=== PATIENT | male | born 1965 | race Caucasian/White ===

== ENCOUNTER 2024-09-24 17:06 | Inpatient (IN) | payer OTHER ==
[~2024-09-24] VITALS: Ht 175.3 cm; Wt 99.2 kg
[2024-09-24 18:04] LABS: BASOPHILS ABSOLUTE AUTO 0.05 K/mm3 (0.00-0.23); BASOPHILS PERCENT AUTO 1 % (0-2); EOSINOPHILS ABSOLUTE AUTO 0.25 K/mm3 (0.00-0.68); EOSINOPHILS PERCENT AUTO 4 % (0-6); Hemoglobin 14.8 g/dL (13.5-17.5); IMMATURE GRAN ABSOLUTE AUTO 0.02 K/mm3 (0.00-0.10); IMMATURE GRAN PERCENT AUTO 0 % (0-1); LYMPHOCYTES ABSOLUTE AUTO 2.44 K/mm3 (0.84-5.20); LYMPHOCYTES PERCENT AUTO 42 % (21-46); MONOCYTES ABSOLUTE AUTO 0.37 K/mm3 (0.16-1.47); MONOCYTES PERCENT AUTO 6 % (4-13); Mean Corpuscular HGB 35.7 pg (26.0-34.0); Mean Corpuscular HGB Conc 36.1 g/dL (31.5-36.5); Mean Corpuscular Volume 99 fL (80-100); NEUTROPHILS ABSOLUTE AUTO 2.74 K/mm3 (1.96-9.15); NEUTROPHILS PERCENT AUTO 47 % (41-73); RDW Coefficient Variation 13.2 % (11.7-14.2); RDW Standard Deviation 47.8 fL (35.1-46.3); Red Blood Cell Count 4.15 M/mm3 (4.30-5.90); White Blood Cell Count 5.87 K/mm3 (4.00-11.30)
[2024-09-24 18:15] LABS: Albumin, Blood 3.3 g/dL (3.4-5.0); Bilirubin, Total 2.4 mg/dL (0.1-1.0); Bun/Creatinine Ratio 9.1 (12.0-20.0); Creatinine, Blood 0.66 mg/dL (0.60-1.20); Globulin, Blood 3.2 g/dL (2.2-4.0); Total Protein, Blood 6.5 g/dL (6.4-8.2)
[2024-09-24 18:23] LABS: Platelet Count 148 K/mm3 (150-400)
[2024-09-24 18:24] LABS: Mean Platelet Volume 9.2 fL (9.1-12.4)
[2024-09-24] MEDS ORDERED: HYDROmorphone HCl/Pf 1MG SYR IV ONE (19:00)
[2024-09-24] MEDS ORDERED: Ondansetron HCl 2 MG / ML 2ML Vial IV ONE (19:00)
[2024-09-24] MEDS ORDERED: Lactated Ringer's 1,000 ML IV ONE (19:00)
[2024-09-24 19:04] LABS: Source, Urine Clean Catch
[2024-09-24 19:10] LABS: Appearance, Urine Clear (Clear); Bilirubin, Urine Neg (Neg); Blood, Urine Neg (Neg); Color, Urine Amber (P-Yellow); Glucose Qualitative, Urine Neg (Neg); Ketones, Urine 1+ (Neg); Leukocyte Esterase, Urine 1+ (Neg); Nitrite, Urine Neg (Neg); Protein, Urine Neg (Neg); Urobilinogen, Urine 2+ (Normal)
[2024-09-24 19:28] LABS: Bacteria Few /hpf; Red Blood Cells, Urine 0-2 /hpf (0-2); Squamous Epithelial Cells Few /hpf (Few)
[2024-09-24] MEDS ORDERED: Prochlorperazine Edisylate 10 mg Vial IV PRN (20:25)
[2024-09-24] MEDS ORDERED: Ondansetron HCl 2 MG / ML 2ML Vial IV PRN (20:25)
[2024-09-24] MEDS ORDERED: FLU VACC TS2024-25(6MOS UP)/PF 45 MCG/0.5 ML SYRINGE IM SCH (20:25)
[2024-09-24] MEDS ORDERED: NS 1,000 ML IV SCH (21:00)
[2024-09-24] MEDS ORDERED: Nicotine 7 MG PATCH TOP SCH (21:00)
[2024-09-24] MEDS ORDERED: CefOXitin Sodium 2,000 MG in NS 50 ML IV SCH (21:00)
[2024-09-24] MEDS ORDERED: Albumin (Human) 25gm/100ml 100 ML IV ONE (21:25)
[2024-09-24] MEDS ORDERED: HYDROmorphone HCl/Pf 1MG SYR IV PRN ×2 (21:55→22:25)
[2024-09-24] MEDS ORDERED: Furosemide 10 MG / ML 2ML Vial IV SCH (22:00)
[2024-09-24 22:15] VITALS: BP 145/82
[2024-09-24 23:40] LABS: C-Reactive Protein, High Sens. 1.01 mg/dL (0.000-3.000)
[2024-09-25] VITALS (15 sets, daily range): BP systolic 99–127; BP diastolic 55–75
[2024-09-25] MEDS ORDERED: ALDACTONE100 MG PO (00:22)
[2024-09-25] MEDS ORDERED: FURO40 PO (00:23)
[2024-09-25] MEDS ORDERED: PANT40 PO (00:24)
[2024-09-25] MEDS ORDERED: OXYC5 PO (00:24)
[2024-09-25] MEDS ORDERED: ONDA8 PO (00:25)
[2024-09-25] MEDS ORDERED: POTA10T PO (00:25)
[2024-09-25 05:03] LABS: BASOPHILS ABSOLUTE AUTO 0.02 K/mm3 (0.00-0.23); BASOPHILS PERCENT AUTO 1 % (0-2); EOSINOPHILS PERCENT AUTO 0 % (0-6); Hematocrit 35.6 % (37.0-53.0); Hemoglobin 12.6 g/dL (13.5-17.5); IMMATURE GRAN ABSOLUTE AUTO 0.01 K/mm3 (0.00-0.10); IMMATURE GRAN PERCENT AUTO 0 % (0-1); LYMPHOCYTES PERCENT AUTO 24 % (21-46); MONOCYTES ABSOLUTE AUTO 0.18 K/mm3 (0.16-1.47); MONOCYTES PERCENT AUTO 4 % (4-13); Mean Corpuscular HGB 35.1 pg (26.0-34.0); Mean Corpuscular HGB Conc 35.4 g/dL (31.5-36.5); Mean Corpuscular Volume 99 fL (80-100); Mean Platelet Volume 8.6 fL (9.1-12.4); NEUTROPHILS ABSOLUTE AUTO 2.93 K/mm3 (1.96-9.15); NEUTROPHILS PERCENT AUTO 71 % (41-73); Platelet Count 105 K/mm3 (150-400); RDW Standard Deviation 47.8 fL (35.1-46.3); Red Blood Cell Count 3.59 M/mm3 (4.30-5.90); White Blood Cell Count 4.14 K/mm3 (4.00-11.30)
[2024-09-25 05:17] LABS: International Normalized Ratio 1.34
[2024-09-25 05:32] LABS: Albumin/Globulin Ratio 1.2 (0.8-1.8); Bilirubin, Total 2.6 mg/dL (0.1-1.0); Bun/Creatinine Ratio 10.2 (12.0-20.0); Calcium, Blood 8.3 mg/dL (8.5-10.1); Creatinine, Blood 0.59 mg/dL (0.60-1.20); Globulin, Blood 2.6 g/dL (2.2-4.0); Potassium, Blood 3.9 mmol/L (3.5-5.5); Total Protein, Blood 5.6 g/dL (6.4-8.2)
[2024-09-25] MEDS ORDERED: Pantoprazole Sodium 40 MG Injection IV SCH (06:00)
--- NOTE | 2024-09-25 06:06 | NUR ---
Shift Summary Pt admitted from ED for incarerated umbilical hernia. I put a consult request in with Dr. Dove's answering service for this AM. Pt arrived on this floor c/o 04/16 pain. I called the hospitalist who increased PRN dilauded order, see EMAR. After giving 1 mg IV dilauded pt quickly fell asleep but desatted down to 79. He was placed on 2L NC where he maintaned SPO2>90% while asleep. This AM he had emesis, approx. 400 mL of dark green output. Pt c/o of intense heartburn before the emesis, the hospitalist ordered IV Protonix daily at 0600. After emesis pt stated his nausea was relieved. I gave one more dose of 0.5 mg dilauded and pt fell asleep without O2 and desatted again down to 78%. I placed his NC back on and he is currently satting at 92%. He is AOx4, normally independent but is in too much pain to get out of bed.
--- NOTE | 2024-09-25 08:00 | NUR ---
PT PLEASANT COOP LYING IN BED. SOMEWHAT HARD TO WAKEN. 02 AT 2L PLACED LAST ANURAG R/T SOMULENCE FROM PAIN MEDS. MAINTAINING MED 90'S. A/O X3 H/R REG, NO MURMUR NOTED. NO TELE. NO EDEMA NOTED. BT X4 HYPOACTIVE. LAST BM COUPLE DAYS PER PT. VOIDS URINAL. MEDICATED FOR PAIN RECENTLY. NO NOTICABLE BULGE AT UMBILICAL SITE AT THIS MOMENT. BED IN LOW POSITOIN, CALLLITE IN REACH,CALLS APPROP
[2024-09-25] MEDS ORDERED: Lactated Ringer's 1,000 ML IV SCH (11:45)
[2024-09-25] MEDS ORDERED: propofoL 20 ML IV ONE (12:01)
--- NOTE | 2024-09-25 12:18 | NUR ---
REPORTED TO DR PACHECO, ANESTHESIOLOGIST, IN DAY SURGERY THAT PATIENT MOANING DUE TO C/O OF ABDOMINAL PAIN. PATIENT RATED PAIN 4/10. NO NEW ORDERS.
[2024-09-25] MEDS ORDERED: FentaNYL Citrate 50 MCG/ML 2 ML Injection ONE (12:26)
[2024-09-25] MEDS ORDERED: SuccINYLCHOLINE Chloride 100 MG/5 ML 5MLSYR ONE (12:27)
[2024-09-25] MEDS ORDERED: Rocuronium Bromide 10 MG/ML 5ML Injection IV ONE (12:27)
[2024-09-25] MEDS ORDERED: Bupivacaine 0.25% Epi 1:200000 30 ML Vial ONE (12:29)
[2024-09-25] MEDS ORDERED: HYDROmorphone HCl/Pf 1MG SYR ONE (12:32)
[2024-09-25] MEDS ORDERED: Ondansetron HCl 2 MG / ML 2ML Vial ONE (12:57)
[2024-09-25] MEDS ORDERED: Dexamethasone Sod Phos 10 MG/ML 1ML VIAL ONE (12:57)
[2024-09-25] MEDS ORDERED: Sugammadex Sodium 200 MG/2ML SDV (100 MG/ML) ONE (12:57)
--- NOTE | 2024-09-25 13:56 | NUR ---
11:55 OUT TO SURGERY. IV ABX GIVEN TO RN 13:50 CALLED REPORT TO RN FOR ROOM 226.
--- NOTE | 2024-09-25 14:08 | NUR ---
pt arrived to room 226 from pacu resting in bed, vss. call light in reach. sleeping. small incision inferior to umbilicus w/tiss adhesive. bed alarm on for safety.
[2024-09-25] MEDS ORDERED: OxyCODONE HCL 5 MG TAB PO PRN ×2 (15:25→21:40)
[2024-09-25] MEDS ORDERED: Mag Hydrox/AL Hydrox/Simeth 30 ML UDC PO PRN (18:30)
[2024-09-25] MEDS ORDERED: Calcium Carbonate 500 MG Tab Chew PO PRN (18:30)
--- NOTE | 2024-09-25 18:35 | NUR ---
SUMMARY PT HAS BEEN SLEEPING MOST OF DAY SINCE ARRIVING TO UNIT FROM PACU. AWOKE BRIEFLY AND REPORTED HEART BURN/ACID REFLUX. OBTAINED ORDERS FOR TUMS AND MAALOX. AWAITING ORDERS TO BE VERIFIED BY PHARMACY. CALL LIGHT IN REACH. BED ALARM ON FOR SAFETY.
[2024-09-26 00:08] VITALS: BP 107/56
[2024-09-26 03:38] VITALS: BP 104/50
--- NOTE | 2024-09-26 06:40 | NUR ---
SHIFT SUMMARY POD 1 HERNIA REPAIR. REPORTS 7-8/10 ABD PAIN ANY TIME HE IS AWAKE. EVEN IF PT IS SOUNDLY SLEEPING W/EYES CLOSED PRIOR TO ENTERING . MEDICATED W/5MG OXYCODONE & PT STATED NO RELIEF, INFORMED MK Ryan & HE INCREASED DOSE TO 5-10MG Q4P. PO SURGICAL SITE INTACT, CLEAN, NO DRAINAGE NOTED. ABD MOD DISTENDED. HYPOACTIVE BT. DENIES PASSING FLATUS. HAS VOIDED MULT TIMES. SPO2 DROPS TO 80% ON RA AFTER RECIEVING PAIN MEDS, PLACED PT ON 2L O2. CALL LIGHT IN REACH.
[2024-09-26 07:12] VITALS: BP 115/69
[2024-09-26] MEDS ORDERED: CIPR500 PO (13:05)
[2024-09-26] MEDS ORDERED: OXAYDO5 M1 PO (13:07)
--- NOTE | 2024-09-26 13:41 | NUR ---
dISCHARGE INSTRUCT d/C INSTRUCT REVIEWED WITH PT AND S/O. STATED UNDERSTANDING AT DISCHARGE. DC'D TO POV AMBULATORY WITH PRINTED INSTRUCT.
== END 2024-09-26 13:55 | disposition home or self-care (01) | DRG 354 ==
LOC: ER 17:06 → MEDS 20:20 → SURS 09-25 13:36 → UNDODEPER 09-26 05:28 → SURS 09-26 13:55
PROVIDERS: Registered Nurse; Student in an Organized Health Care Education/Training Program; Surgery; ADMIT Student in an Organized Health Care Education/Training Program
PROC: 0WUF0JZ Supplement Abdominal Wall with Synthetic Substitute, Open Approach (ICD-10-PCS; principal; 2024-09-25 13:00)
DX: K42.0 Umbilical hernia with obstruction, without gangrene (principal); E87.21 Acute metabolic acidosis; R18.8 Other ascites; G89.29 Other chronic pain; Z66 Do not resuscitate; K76.82 Hepatic encephalopathy; E88.09 Other disorders of plasma-protein metabolism, not elsewhere classified; K74.60 Unspecified cirrhosis of liver; I10 Essential (primary) hypertension; F17.220 Nicotine dependence, chewing tobacco, uncomplicated; F10.11 Alcohol abuse, in remission; Z86.19 Personal history of other infectious and parasitic diseases
CPT/HCPCS: 36415; 74177; 80053; 81001; 83605; 83690; 85025; 85610; 86141; 87086; 94762; 96374; 96375; 99285-25; A9270; C1781; J0330; J0694; J1100; J1171; J1940; J2405; J2470; J2704; J3010; J7030; J7120; P9047; Q9967